=== PATIENT | male | born 1985 | race American Indian/Alaskan Native ===

== ENCOUNTER 2016-09-17 05:27 | Emergency (ER) | payer SELFPAY ==
--- NOTE | 2016-09-17 06:07 | C.PDOC ---
History Of Present Illness 30 yo male brought to ED by police, in custody, for medical evaluation. As per police, " break into few houses tonight and now arrested". As per police, was c/ o SOB on route. At present time, pt appears in emotional distress, uncooperative , not in respiratory distress, speaks full sentences. Pt denies give history to present illness. Time Seen by Provider: 09/17/16 06:02 Chief Complaint (Nursing): Medical Clearance History Per: Patient History/Exam Limitations: other Past Medical History Reviewed: Historical Data, Nursing Documentation, Vital Signs Vital Signs: Last Vital Signs Temp 97.9 F 09/17/16 05:37 Pulse 111 H 09/17/16 05:37 Resp 18 09/17/16 05:37 BP 126/79 09/17/16 05:37 Pulse Ox 96 09/17/16 06:23 - Medical History PMH: Denies: Chronic Kidney Disease Other Surgeries: not contributory Family History: States: Unknown Family Hx - Social History Hx Tobacco Use: Yes Hx Alcohol Use: Yes (occasionally) Hx Substance Use: Yes (smokes marijuana daily) - Immunization History Hx Tetanus Toxoid Vaccination: No Hx Influenza Vaccination: No Hx Pneumococcal Vaccination: No Review Of Systems Review Of Systems: ROS cannot be obtained secondary to pt's inabilty to answer questions. (pt is not cooperative, emotional distress) Physical Exam - Physical Exam Appears: Non-toxic, Unkempt Skin: Normal Color, Warm Head: Normacephalic, Swelling (Right side forehead. NO palpable deformity.), Abrasion (Right side forehead) Eye(s): bilateral: PERRL Nose: No Discharge, No Deformity Oral Mucosa: Moist, No Drooling, No Trismus Tongue: Normal Appearing, No Laceration Lips: Normal Appearing, No Laceration Throat: Normal Neck: No Midline Cervical Tenderness, No Paracervical Tenderness, No Step Off Deformity, Supple Chest: Symmetrical, No Deformity, No Tenderness Cardiovascular: Rhythm Regular Respiratory: No Decreased Breath Sounds, No Accessory Muscle Use, No Rales, No Rhonchi, No Stridor, No Wheezing Gastrointestinal/Abdominal: Soft, No Tenderness, No Distention, No Guarding Extremity: Tenderness (Right shoulder superior aspect tenderness. No deformity.) , No Deformity Neurological/Psych: Oriented x3, Normal Speech ED Course And Treatment O2 Sat by Pulse Oximetry: 96 Pulse Ox Interpretation: Normal - Other Rad Right shoulder X-Ray: Interpreted by Me, Viewed By Me Interpretation: no acute fx or dislocation Progress Note: On re-eavl, pt is afebrile, hemodynamiclay stable. Non-toxic. PulseOx 96% RA. Head:Right forehead superifical contusion. No palpable deformity. neck: (-) midline tenderness. Lungs: CTA B/L, BS equal B/L. RUE: exam c/w Right shoulder contusion. FAROM, no deformity, no neurovascular deficits. Neurologicaly intact. FSBS 126. xray review (-) fx of Right shoulder. Pt is medically cleared for discharge to long-term. Disposition - Disposition Disposition: HOME/ ROUTINE Disposition Time: 06:11 Condition: STABLE Additional Instructions: PATIENT IS MEDICALLY CLEARED FOR DISCHARGE TO [place] [employer]ICE CUSTODY. OBSERVE 48 HOURS FOR ANY SIGN OF HEAD INJURY-INTRACTABLE HEADACHE, VOMITING, VISUAL CHANGES OR ANY OTHER NEW CHANGES-RETURN TO ED IMMEDIATELY FOR RE- EVALUATION. Instructions: Head Injury (ED), Contusion in Adults (ED), Shoulder Sprain (ED) - Clinical Impression Clinical Impression: Head injury, Contusion, Shoulder contusion
[2016-09-17 06:55] VITALS: BP 138/85; PULSE 87; RESP 20; TEMP 97.7; O2SAT 99
--- NOTE | 2016-09-17 09:44 | RAD ---
PROCEDURE: Radiographs of the Right Shoulder HISTORY: injury COMPARISON: No prior. FINDINGS: BONES: Normal. No fracture. JOINTS: Normal. Glenohumeral and acromioclavicular joints preserved. No osteoarthritis. SOFT TISSUES: Normal. OTHER FINDINGS: None. IMPRESSION: No acute findings related to/accounting for the clinical presentation. Concordant results with the preliminary interpretation rendered by the emergency department physician procedure.
== END 2016-09-17 07:08 | disposition home or self-care (01) ==
LOC: C.ER 05:27
DX: S40.011A Contusion of right shoulder, initial encounter (principal); S00.83XA Contusion of other part of head, initial encounter; X58.XXXA Exposure to other specified factors, initial encounter; Y92.89 Other specified places as the place of occurrence of the external cause

== ENCOUNTER 2017-05-16 17:28 | Emergency (ER) | payer SELFPAY ==
[2017-05-16 17:41] VITALS: BMI 29.5
[2017-05-16] MEDS ORDERED: Sodium Chloride 0.9% 500 ML IV ONE ×2 (18:37→18:56)
[2017-05-16 18:56] LABS: BASO # 0.1 K/uL (0.0-0.2); BASO % 0.3 % (0.0-2.0); HEMOGLOBIN 14.4 g/dL (12.0-18.0); LYMPH # 1.7 K/uL (1.0-4.3); LYMPH % 8.2 % (20.0-40.0); MEAN CELL VOLUME 92.1 fL (80.0-94.0); MEAN CORPUSCULAR HEMOGLOBIN 32.4 pg (27.0-31.0); MEAN CORPUSCULAR HGB CONC 35.1 g/dL (33.0-37.0); MEAN PLATELET VOLUME 8.2 fL (7.2-11.7); MONO # 1.4 K/uL (0.0-0.8); MONO % 6.8 % (0.0-10.0); NEUT # 17.7 K/uL (1.8-7.0); NEUT % 84.7 % (50.0-75.0); PLATELET COUNT 255 K/uL (130-400); RBC 4.44 Mil/uL (4.40-5.90); RED CELL DISTRIBUTION WIDTH 12.8 % (11.5-14.5); WHITE BLOOD COUNT 20.9 K/uL (4.8-10.8)
[2017-05-16 19:11] LABS: CALCIUM 8.8 mg/dl (8.6-10.4); GFR AFRICAN-AMERICAN > 60; GFR NON-AFRICAN AMERICAN > 60; LIPASE 17 U/L (23-300)
[2017-05-16 19:12] LABS: ALB/GLOB RATIO 0.9 (1.0-2.1); ALBUMIN 4.4 g/dL (3.5-5.0); ALT/SGPT 49 U/L (21-72); AST/SGOT 82 U/L (17-59); BLOOD UREA NITROGEN 11 mg/dL (9-20)
--- NOTE | 2017-05-16 19:28 | C.PDOC ---
History Of Present Illness 31 year old male presents to the ER with a complaint of mid sternal chest pain associated with SOB, nausea, vomiting, diarrhea, nonproductive cough, and subjective fever for the past 5 days. Denies recent travel or sick contact. Time Seen by Provider: 05/16/17 18:24 Chief Complaint (Nursing): Chest Pain History Per: Patient History/Exam Limitations: no limitations Onset/Duration Of Symptoms: Days Current Symptoms Are (Timing): Still Present Associated Symptoms: Nausea, Other (SOB, vomiting, diarrhea, nonproductive cough , subjective fever). denies: Diaphoresis, Syncope Modifying Factors: None Exacerbating Factors: None Alleviating Factors: None Recent travel outside of the [place]: No Past Medical History Reviewed: Historical Data, Nursing Documentation, Vital Signs Vital Signs: Last Vital Signs Temp 98.8 F 05/16/17 22:29 Pulse 82 05/16/17 22:29 Resp 20 05/16/17 22:29 BP 117/71 05/16/17 22:29 Pulse Ox 98 05/16/17 22:29 Family History: States: Unknown Family Hx - Social History Hx Tobacco Use: Yes Hx Alcohol Use: Yes (occasionally) Hx Substance Use: Yes (smokes marijuana daily) - Immunization History Hx Tetanus Toxoid Vaccination: No Hx Influenza Vaccination: No Hx Pneumococcal Vaccination: No Review Of Systems Except As Marked, All Systems Reviewed And Found Negative. Constitutional: Positive for: Fever (Subjective) ENT: Positive for: Nose Discharge Respiratory: Positive for: Cough, Shortness of Breath. Negative for: Sputum Gastrointestinal: Positive for: Nausea, Vomiting, Diarrhea Genitourinary: Negative for: Dysuria, Hematuria Neurological: Negative for: Weakness, Numbness Physical Exam - Physical Exam Appears: Non-toxic, No Acute Distress Skin: Normal Color, Warm, Dry Head: Atraumatic, Normacephalic Eye(s): bilateral: Normal Inspection Oral Mucosa: Moist Neck: Normal, Supple Chest: Symmetrical, No Tenderness Cardiovascular: Rhythm Regular (Tachycardic) Respiratory: Normal Breath Sounds, No Rales, No Rhonchi, No Wheezing Gastrointestinal/Abdominal: Soft, No Tenderness Neurological/Psych: Oriented x3, Normal Speech, Other (No focal deficits) ED Course And Treatment - Laboratory Results Result Diagrams: 05/16/17 22:27 05/16/17 22:50 O2 Sat by Pulse Oximetry: 98 Medical Decision Making Medical Decision Making: Plan: * EKG * CXR * Blood work * Urinalysis * Pepcid * IV fluids * Zofran * toradol EKG: Sinus Tach at 127 BPM 10:0PM Cxray shows no definite pneumonia. WBC elevated. D-dimer elevated. CT shows 1. No definite pulmonary embolism. 2. Probable LLL pneumonia. Followup to resolution to exclude underlying pathology. 3. Incidental/non-acute findings are described above. Patient has elevated wbc but improving on repeat blood work after IVF. Lactate WNL. Patient feels better. Spoke with his at length about mgmt of pneumonia and he is requesting outpatient trial first. He has no co-morbid conditions, he does not live in alf and has normal vitals. Given first dose of azithromycin and ceftriaxone in ED. Disposition - Disposition Disposition: HOME/ ROUTINE Disposition Time: 22:08 Condition: FAIR Additional Instructions: Return immediately with any worsening symptoms. Follow-up with PMD within 2 days. Take full course of antibiotics. Prescriptions: Azithromycin 250 mg PO DAILY #4 tablet Instructions: Community Acquired Pneumonia (ED) Forms: [employer] ([place]ish), Work Excuse - Clinical Impression Clinical Impression: Pneumonia - Scribe Statement The provider has reviewed the documentation as recorded by the Scribe Alexander Isabel All medical record entries made by the Scribe were at my direction and personally dictated by me. I have reviewed the chart and agree that the record accurately reflects my personal performance of the history, physical exam, medical decision making, and the department course for this patient. I have also personally directed, reviewed, and agree with the discharge instructions and disposition.
[2017-05-16 20:47] LABS: SQUAMOUS EPITHIAL 2 /hpf (0-5); URINE BILIRUBIN NEGATIVE (NEGATIVE); URINE BLOOD NEGATIVE (NEGATIVE); URINE CLARITY Clear (Clear); URINE COLOR Amber (YELLOW); URINE GLUCOSE (UA) NORMAL (Normal); URINE LEUKOCYTE ESTERASE NEG Leu/uL (Negative); URINE NITRATE NEGATIVE (NEGATIVE); URINE PROTEIN 2+ mg/dL (NEGATIVE)
[2017-05-16] MEDS ORDERED: Iohexol 350mg/ml 100 ML ONE (20:51)
[2017-05-16 21:45] LABS: BANDS 6 % (0-2); LYMPHOCYTE 13 % (20-40); MONOCYTE 9 % (0-10); NEUTROPHIL 72 % (50-75); TOTAL CELLS COUNTED 100
[2017-05-16 21:47] LABS: PLATELET ESTIMATE NORMAL (NORMAL)
--- NOTE | 2017-05-16 22:06 | CT ---
EXAM: CT Chest With Intravenous Contrast CLINICAL HISTORY: 31 years old, male; Pain; Chest pressure; Additional info: Tachycardic, elevated d-dimer TECHNIQUE: Axial computed tomography images of the chest with intravenous contrast during the arterial phase of enhancement. All CT scans at this facility use one or more dose reduction techniques, viz.: automated exposure control; ma/kV adjustment per patient size (including targeted exams where dose is matched to indication; i.e. head); or iterative reconstruction technique. Coronal reformatted images were created and reviewed. CONTRAST: 100 mL of omnipaque 350 administered intravenously. COMPARISON: No relevant prior studies available. FINDINGS: Limitations: Suboptimal timing of bolus. Pulmonary arteries: No definite filling defects within main, lobar, segmental branches. Suboptimal evaluation of subsegmental branches. Aorta: No aneurysm. No dissection. Lungs: Consolidation with air bronchograms within left lower lobe. Minimal atelectasis/scarring. Pleural space: No significant effusion. No pneumothorax. Heart: No cardiomegaly. Trace focal pericardial effusion. Bones/joints: No acute fracture. Soft tissues: Minimal gynecomastia. Lymph nodes: No pathologically enlarged lymph nodes. Liver: Probable mild fatty infiltration. Adrenals: Mild hypertrophy of adrenal glands. Kidneys and ureters: Mild stranding about kidneys, nonspecific. IMPRESSION: 1. No definite pulmonary embolism. 2. Probable LLL pneumonia. Followup to resolution to exclude underlying pathology. 3. Incidental/non-acute findings are described above.
[2017-05-16] MEDS ORDERED: Azithromycin 500 MG in Sodium Chloride 0.9% 250 ML IVPB STA (22:12)
[2017-05-16 22:31] VITALS: RESP 20; TEMP 98.8
[2017-05-16 22:34] LABS: VENOUS BLOOD GAS BASE EXCESS 0.8 mmol/L (0.0-2.0); VENOUS BLOOD GAS PCO2 39 mmHg (40-60); VENOUS BLOOD GAS PO2 35 mm/Hg (30-55); VENOUS BLOOD PH 7.42 (7.32-7.43)
[2017-05-16 22:36] LABS: BASO % 0.3 % (0.0-2.0); EOS % 0.1 % (0.0-4.0); HEMOGLOBIN 12.9 g/dL (12.0-18.0); LYMPH # 1.8 K/uL (1.0-4.3); MEAN CELL VOLUME 93.8 fL (80.0-94.0); MEAN CORPUSCULAR HEMOGLOBIN 32.6 pg (27.0-31.0); MEAN CORPUSCULAR HGB CONC 34.7 g/dL (33.0-37.0); MEAN PLATELET VOLUME 8.6 fL (7.2-11.7); MONO # 1.6 K/uL (0.0-0.8); MONO % 8.8 % (0.0-10.0); NEUT # 14.4 K/uL (1.8-7.0); NEUT % 80.8 % (50.0-75.0); RBC 3.98 Mil/uL (4.40-5.90); RED CELL DISTRIBUTION WIDTH 13.3 % (11.5-14.5); WHITE BLOOD COUNT 17.8 K/uL (4.8-10.8)
[2017-05-16] MEDS ORDERED: Potassium Chloride 20 mEq ER Tab PO STA (22:42)
[2017-05-16] MEDS ORDERED: Potassium Chloride 20 mEq ER Tab PO ONE (22:56)
[2017-05-16 23:05] LABS: ALBUMIN 3.6 g/dL (3.5-5.0); ALT/SGPT 48 U/L (21-72); AST/SGOT 31 U/L (17-59); BLOOD UREA NITROGEN 13 mg/dL (9-20); CALCIUM 8.4 mg/dl (8.6-10.4); GFR AFRICAN-AMERICAN > 60; GFR NON-AFRICAN AMERICAN > 60
[2017-05-17 00:53] VITALS: BP 113/70; PULSE 78; O2SAT 100
--- NOTE | 2017-05-17 07:51 | RAD ---
HISTORY: May 16, 2017. COMPARISON: May 16, 2017. CT pulmonary angiogram TECHNIQUE: Chest PA and lateral FINDINGS: LUNGS: Left lower lobe infiltrate compatible with pneumonia. PLEURA: No significant pleural effusion identified. No pneumothorax apparent. CARDIOVASCULAR: Normal. OSSEOUS STRUCTURES: No significant abnormalities. VISUALIZED UPPER ABDOMEN: Normal. OTHER FINDINGS: None. IMPRESSION: Left lower lobe pneumonia.
== END 2017-05-17 01:03 | disposition home or self-care (01) ==
LOC: C.ER 17:28
DX: J18.9 Pneumonia, unspecified organism (principal); Z72.0 Tobacco use
CPT/HCPCS: 71046; 71275; 80053; 81001; 82550; 82803; 83690; 85025; 85378; 96361; 96365; 96367; 96375; 99285; J0456; J0696; J1885; J2405; J7040; J7050; Q9967